=== PATIENT | female | born 1970 | race African-American/Black ===

== ENCOUNTER 2022-10-18 07:55 | Emergency (ER) | payer BC ==
[~2022-10-18] VITALS: Ht 162.6 cm; Wt 80.0 kg
[~2022-10-18 07:55] MED LIST: NAPROSYN500 MG OR; NO HOME MEDS
[2022-10-18 08:07] VITALS: BP 145/90
[2022-10-18] MEDS ORDERED: STRATTERA10 MG PO (08:26)
[2022-10-18] MEDS ORDERED: TRAZODONE50 MG PO (08:26)
[2022-10-18 08:27] VITALS: BP 132/92
[2022-10-18] MEDS ORDERED: PREDNISODT10 PO (08:27)
[2022-10-18] MEDS ORDERED: HYDROCHLOROT25 MG PO (08:28)
[2022-10-18 08:30] VITALS: BP 128/94
[2022-10-18 08:48] VITALS: BP 128/94
== END 2022-10-18 09:02 | disposition home or self-care (01) | DRG 313 ==
LOC: ED 07:55
DX: R07.89 Other chest pain (principal); K51.90 Ulcerative colitis, unspecified, without complications; F41.9 Anxiety disorder, unspecified

== ENCOUNTER 2022-12-07 08:16 | Emergency (ER) | payer OTHER, BC ==
[2022-12-07] VITALS (15 sets, daily range): BP systolic 114–140; BP diastolic 70–91
[~2022-12-07] VITALS: Ht 162.6 cm; Wt 83.2 kg
[~2022-12-07 08:16] MED LIST changes: +HYDROCHLOROT25 MG PO; +PREDNISODT10 PO; +STRATTERA10 MG PO; +TRAZODONE50 MG PO
[2022-12-07] MEDS ORDERED: GABAPENTIN400 MG PO (08:43)
== END 2022-12-07 12:38 | disposition home or self-care (01) | DRG 556 ==
LOC: ED 08:16
DX: M25.552 Pain in left hip (principal); M25.512 Pain in left shoulder; W01.0XXA Fall on same level from slipping, tripping and stumbling without subsequent striking against object, initial encounter; Y92.89 Other specified places as the place of occurrence of the external cause; Y99.0 Civilian activity done for income or pay